=== PATIENT | male | born 1985 | race Caucasian/White ===

== ENCOUNTER 2017-09-03 01:41 | Emergency (ER) | payer MEDICAID ==
[~2017-09-03] VITALS: Ht 160 cm; Wt 98.4 kg
[2017-09-03 01:46] VITALS: Ht 160 cm; Wt 98.4 kg
[2017-09-03 04:29] VITALS: BP 135/91
== END 2017-09-03 04:29 | disposition home or self-care (01) ==
LOC: ED 01:41
DX: R06.03 Acute respiratory distress (principal); J98.01 Acute bronchospasm
CPT/HCPCS: J7512; J7613